=== PATIENT | male | born 1990 | race Caucasian/White ===

== ENCOUNTER 2016-08-16 15:05 | Emergency (ER) | payer OTHER ==
[~2016-08-16 15:05] MED LIST: ADVAIR 500/501 DISK IH; ALBUTEROL17 GM IH; CLARITIN10 MG PO; HALDOL1 MG PO; PREDNISON
[2016-08-16 15:13] LABS: BASOPHIL COUNT 0.1 K/uL (0-0.1); EOSINOPHIL (%) 0.9 % (0-5); EOSINOPHIL COUNT 0.1 K/uL (0-0.3); HEMATOCRIT 39.9 % (38.0-50.0); IMMATURE GRANULOCYTE (%) 0.3 % (0.0-0.7); INSTRUMENT ABS NEUTROPHIL CT 6.6 K/uL; LYMPHOCYTE COUNT 1.9 K/uL (1.0-2.8); MCH 29.8 PG (29.0-34.0); MCHC 34.1 G/DL (30.0-36.0); MCV 87.3 FL (86-99); MEAN PLAT.VOLUME 10.5 uM^3 (9.0-12.4); MONOCYTE COUNT 0.6 K/uL (0-0.8); NEUTROPHIL (%) 71.3 % (45-76); NEUTROPHIL COUNT 6.6 K/uL (1.8-6.4); PLATELET COUNT 249 K/uL (156-360); RBC DIS.WIDTH-CV 12.8 % (11.8-14.6); RBC DIS.WIDTH-SD 40.3 % (39-53); RED BLOOD COUNT 4.57 M/uL (4.00-5.50); WHITE BLOOD COUNT 9.3 K/uL (4.1-10.2)
[2016-08-16 15:24] LABS: AMYLASE 55 IU/L (1-118); CHLORIDE 107 mEq/L (99-109); POTASSIUM 4.1 mEq/L (3.7-5.4); SODIUM 139 mEq/L (136-147)
[2016-08-16 15:26] LABS: GLUCOSE 110 mg/dL (70-99)
[2016-08-16 15:27] LABS: ANION GAP 9 MEQ/L (2-14)
[2016-08-16 15:29] LABS: SERUM ETHYL ALCOHOL < 10 mg/dL
[2016-08-16 15:30] LABS: GFR ESTIMATE (CALCULATED) > 59 mL/min/; UREA NITROGEN (BUN) 10 mg/dL (9-23)
[2016-08-16 15:33] LABS: LIPASE 21 U/L (1.0-51.0)
[2016-08-16] MEDS ORDERED: KEFLEX500 MG PO (16:42)
[2016-08-16] MEDS ORDERED: MOTRIN800 MG PO (16:42)
== END 2016-08-16 17:38 ==
LOC: TRA 15:05
PROVIDERS: Internal Medicine
PROC: 09QKXZZ Repair Nasal Mucosa and Soft Tissue, External Approach (ICD-10-PCS; principal; 2016-08-16)
DX: S02.2XXA Fracture of nasal bones, initial encounter for closed fracture (principal); S01.21XA Laceration without foreign body of nose, initial encounter; Y04.2XXA Assault by strike against or bumped into by another person, initial encounter; Y92.143 Cell of prison as the place of occurrence of the external cause
CPT/HCPCS: 70450; 70486; 80048; 81003; 82150; 83690; 85025; 86900; 86901; 99281; 99285; G0480